=== PATIENT | female | born 1995 | race Caucasian/White ===

== ENCOUNTER 2020-04-23 03:18 | Emergency (ER) | payer MEDICAID ==
[~2020-04-23] VITALS: Ht 177.8 cm; Wt 63.0 kg
[2020-04-23] MEDS ORDERED: normal saline 1000ML IV soln IVB ONE ×2 (03:45)
[2020-04-23] MEDS ORDERED: pantoprazole 40 MG vial IV ONE (03:45)
[2020-04-23] MEDS ORDERED: ondansetron/PF 4mg/2ml inj IV ONE (03:45)
[2020-04-23 04:08] LABS: BASOPHILS # (AUTO) 0.1 X10'3 (0-0.2); BASOPHILS % (AUTO) 1.2 % (0-1); EOSINOPHILS # (AUTO) 0.1 X10'3 (0-0.9); EOSINOPHILS % (AUTO) 0.7 % (0-6); HEMATOCRIT 37.6 % (35.0-45.0); HEMOGLOBIN 12.5 g/dl (12.0-16.0); LYMPHOCYTES # (AUTO) 2.1 X10'3 (1.1-4.8); LYMPHOCYTES % (AUTO) 30.3 % (21-51); MEAN CORPUSCULAR HEMOGLOBIN 27.8 PG (27.0-31.0); MEAN CORPUSCULAR HGB CONC 33.2 g/dL (33.0-36.5); MEAN CORPUSCULAR VOLUME 83.6 FL (78-98); MEAN PLATELET VOLUME 7.3 FL (7.4-10.4); MONOCYTES # (AUTO) 0.3 X10'3 (0-0.9); MONOCYTES % (AUTO) 4.9 % (2-12); NEUTROPHILS # (AUTO) 4.3 X10'3 (1.8-7.7); NEUTROPHILS % (AUTO) 62.9 % (42-75); PLATELET COUNT 246 X10'3 (140-440); RED BLOOD COUNT 4.49 X10'6 (4.20-5.60); RED CELL DISTRIBUTION WIDTH 14.6 % (11.5-14.5); WHITE BLOOD COUNT 6.8 X10'3 (4.5-11.0)
[2020-04-23 04:14] LABS: CLARITY,URINE SLIGHTLY CLOUDY (Clear); GLUCOSE, URINE NEGATIVE (Neg); KETONES,URINE NEGATIVE (Neg); LEUKOCYTE ESTERASE ,URINE NEGATIVE (Neg); NITRITES, URINE NEGATIVE (Neg); OCCULT BLOOD,URINE LARGE (Neg); PH,URINE 6.5 (4.8-8.0); PROTEIN,URINE NEGATIVE (Neg); UROBILINOGEN,URINE 0.2 E.U/dL (0.2-1.0)
[2020-04-23 04:15] LABS: COLOR,URINE DARK YELLOW (Yellow); HCG SERUM QL NEGATIVE; UA COLLECTION TYPE CLN CATCH MIDSTREAM
[2020-04-23 04:20] LABS: ALANINE AMINOTRANSFERASE 26 U/L (12-78); ALBUMIN 3.8 G/DL (3.4-5.0); ALBUMIN/GLOBULIN RATIO 1.2 (1.1-1.5); ALKALINE PHOSPHATASE 81 IU/L (46-116); ANION GAP 7 (8-16); ASPARTATE AMINO TRANSFERASE 10 U/L (10-37); BILIRUBIN,TOTAL 0.7 MG/DL (0.1-1.0); BLOOD UREA NITROGEN 10 MG/DL (7-18); BUN/CREATININE RATIO 14.7 (6.6-38.0); CALCIUM 8.6 MG/DL (8.5-10.1); CHLORIDE 104 MMOL/L (99-107); CREATININE 0.68 MG/DL (0.40-0.90); GLUCOSE 101 MG/DL (70-104); LIPASE 89 U/L (73-393); MUCUS STRANDS MANY /LPF (Neg); POTASSIUM 3.3 MMOL/L (3.5-5.1); SODIUM 138 MMOL/L (135-145); SQUAMOUS EPITHELIAL CELL,UR MODERATE /LPF (FEW); TOTAL CARBON DIOXIDE 27.2 MMOL/L (24-32); WBC,URINE 0-4 /HPF (0-4); eGFR > 90 ML/MIN
[2020-04-23 04:22] LABS: AMORPHOUS PHOSPHATES 1+; BACTERIA,URINE FEW /HPF (Neg)
[2020-04-23] MEDS ORDERED: PANT-47 PO (04:42)
[2020-04-23] MEDS ORDERED: ONDA8TAB13 PO (04:42)
--- NOTE | 2020-04-23 04:43 | NUR ---
Pt was given 320ml of water for fluid challenge. Pt tolerated liquds. Dr. Alberto elizabeth.
[2020-04-23 04:53] VITALS: BP 112/74
== END 2020-04-23 04:55 | disposition home or self-care (01) ==
LOC: ER 03:19
DX: R11.10 Vomiting, unspecified (principal); F17.200 Nicotine dependence, unspecified, uncomplicated; F11.90 Opioid use, unspecified, uncomplicated; Z79.899 Other long term (current) drug therapy
CPT/HCPCS: 36415; 80053; 81001; 83690; 84703; 85025; 96361; 96374; 96375; 99284; C9113; J2405; J7030

== ENCOUNTER 2020-07-04 06:31 | Emergency (ER) | payer MEDICAID ==
[~2020-07-04] VITALS: Ht 177.8 cm; Wt 68.2 kg
[~2020-07-04 06:31] MED LIST: ONDA8TAB13 PO; PANT-47 PO
--- NOTE | 2020-07-04 06:59 | NUR ---
PT SMOKES POT
[2020-07-04] MEDS ORDERED: normal saline 1000ML IV soln IVB ONE (07:20)
[2020-07-04] MEDS ORDERED: metoclopramide 5 mg/ml inj IV ONE (07:20)
[2020-07-04] MEDS ORDERED: diphenhydrAMINE 50 mg/ml inj IV ONE (07:20)
[2020-07-04 08:14] LABS: URINE HCG NEGATIVE (NEG)
--- NOTE | 2020-07-04 08:15 | NUR ---
PT LEFT ER THRU AMBULANCE DOORS AND WAS IN THE TRUCK. BROUGHT BACK INTO ER BY STAFF.
[2020-07-04 08:18] VITALS: BP 146/94
[2020-07-04 08:23] LABS: CLARITY,URINE SLIGHTLY CLOUDY (Clear); COLOR,URINE YELLOW (Yellow); GLUCOSE, URINE NEGATIVE (Neg); KETONES,URINE TRACE mg/dl (Neg); LEUKOCYTE ESTERASE ,URINE NEGATIVE (Neg); NITRITES, URINE NEGATIVE (Neg); OCCULT BLOOD,URINE NEGATIVE (Neg); PROTEIN,URINE NEGATIVE (Neg); UROBILINOGEN,URINE 0.2 E.U/dL (0.2-1.0)
[2020-07-04 08:38] LABS: UA COLLECTION TYPE CLN CATCH MIDSTREAM
[2020-07-04 08:39] LABS: MUCUS STRANDS FEW /LPF (Neg); SQUAMOUS EPITHELIAL CELL,UR MODERATE /LPF (FEW); URINE AMPHETAMINE SCREEN NEGATIVE (Neg); URINE BARBITUATE SCREEN NEGATIVE (Neg); URINE BENZODIAZEPINES SCREEN NEGATIVE (Neg); URINE CANNABINOID SCREEN POSITIVE (Neg); URINE COCAINE SCREEN NEGATIVE (Neg); URINE METHADONE SCREEN NEGATIVE (Neg); URINE OPIATE SCREEN POSITIVE (Neg); URINE PHENCYCLIDINE SCREEN NEGATIVE (Neg)
[2020-07-04 08:40] LABS: BACTERIA,URINE 1+ /HPF (Neg); RBC,URINE 0-2 /HPF (0-2); WBC,URINE 0-4 /HPF (0-4)
[2020-07-04] MEDS ORDERED: ondansetron/PF 4mg/2ml inj IV ONE (08:45)
[2020-07-04] MEDS ORDERED: ONDA4TAB6 PO (09:08)
== END 2020-07-04 09:55 | disposition home or self-care (01) ==
LOC: ER 06:31
DX: R11.2 Nausea with vomiting, unspecified (principal); F12.188 Cannabis abuse with other cannabis-induced disorder; R10.13 Epigastric pain; F11.90 Opioid use, unspecified, uncomplicated; Z79.899 Other long term (current) drug therapy
CPT/HCPCS: 80305; 81001; 81025; 96361; 96374; 96375; 99284; J1200; J2765; J7030

== ENCOUNTER 2020-07-08 12:23 | Emergency (ER) | payer MEDICAID ==
[~2020-07-08] VITALS: Ht 177.8 cm; Wt 63.6 kg
[~2020-07-08 12:23] MED LIST changes: +ONDA4TAB6 PO
[2020-07-08 12:31] VITALS: BP 107/61
--- NOTE | 2020-07-08 12:50 | NUR ---
Pt denied Covid sxs to screener and then reported in triage having Cough and decreased taste and smell. Pt VSs stable, charge master specialist [place] updated on sxs and pt placed outside where designated covid sx pts assigned till further evaluation.
[2020-07-08] MEDS ORDERED: ondansetron 4mg rapidly disintigrating tab PO ONE (13:05)
[2020-07-08] MEDS ORDERED: pantoprazole 40mg Tablet.DR PO SCH (13:05)
[2020-07-08] MEDS ORDERED: ONDA4TAB12 PO (13:10)
[2020-07-08] MEDS ORDERED: PANT-47 PO (13:10)
== END 2020-07-08 13:36 | disposition home or self-care (01) ==
LOC: ER 12:24
DX: R11.2 Nausea with vomiting, unspecified (principal); R05 Cough; R43.8 Other disturbances of smell and taste; Z20.828 Contact with and (suspected) exposure to other viral communicable diseases; F11.90 Opioid use, unspecified, uncomplicated; Z79.899 Other long term (current) drug therapy
CPT/HCPCS: 36415; 87635; 99283